=== PATIENT | male | born 1980 | race Caucasian/White ===

== ENCOUNTER → 2024-11-03 15:02 | Outpatient (REF) | payer OTHER, SELFPAY | LOC: RCS 15:02 | PROVIDERS: ATTENDING PHYSICIAN Internal Medicine Cardiovascular Disease; FAMILY PHYSICIAN Physician Assistant | DX: R00.2 Palpitations (principal) | CPT/HCPCS: 93306 ==

== ENCOUNTER 2024-11-17 10:32 | Emergency (ER) | payer OTHER, SELFPAY ==
[2024-11-17] VITALS (8 sets, daily range): BP systolic 118–176; BP diastolic 76–94; BMI 27.9
[2024-11-17 10:51] LABS: % Basophils 0.7 % (0-2); % Eosinophils 1.3 % (0-6); % Immature Granulocytes 0.2 % (0-0.5); % Lymphocytes 27.2 % (20.5-51.1); % Monocytes 4.7 % (1.7-9.3); % Neutrophils 65.9 % (42.2-75.2); Absolute Eosinophils 0.1 10^3/uL (0-0.7); Absolute Lymphocytes 1.7 10^3/uL (1.2-3.4); Absolute Monocytes 0.3 10^3/uL (0.1-0.6); Hematocrit 45.8 % (39.0-52.0); Hemoglobin 15.5 g/dL (13.0-18.0); Mean Corp Hgb Conc. 33.8 g/dL (33.0-37.0); Mean Corpuscular Volume 85.6 fL (80.0-94.0); Mean Platelet Volume 9.1 fL (7.4-10.4); Nucleated Red Blood Cells % 0 % (-); Platelet Count 185 10^3/uL (130-400); Red Blood Cell Count 5.35 10^6/uL (4.70-6.10); Red Cell Dist. Width 11.9 % (11.5-14.5); White Blood Cell Count 6.1 10^3/uL (4.8-10.8)
[2024-11-17 11:09] LABS: ALT (SGPT) 25 U/L (0-50); AST (SGOT) 26 U/L (17-59); Albumin 5.3 g/dl (3.5-5.0); Alkaline Phosphatase 72 U/L (38-126); Blood Urea Nitrogen 19 mg/dl (9-20); Calcium 9.9 mg/dl (8.4-10.2); Carbon Dioxide 23 mmol/L (22-30); Chloride 100 mmol/L (98-107); Glucose 151 mg/dl (70-99); Potassium 3.8 mmol/L (3.5-5.1); Sodium 136 mmol/L (135-145); Total Bilirubin 1.3 mg/dl (0.2-1.3); Total Protein 7.8 g/dl (6.3-8.2); eGFR > 60.00
--- NOTE | 2024-11-17 14:10 | ED.GENMED ---
History of Present Illness
General
Chief Complaint: Dizziness
Source: patient and spouse
Exam Limitations: none
Time Seen by Provider: 11/17/24 13:55
Nursing documentation reviewed up to this point in time: agreed with
History of Present Illness
History of Present Illness:
44-year-old male with no reported chronic medical issues presents to the ER for evaluation of lightheadedness and palpitations/tachycardia. Patient reports that he was working from home today sitting in his desk when he had rather sudden onset of
lightheadedness 'like I might pass out.' He says he had associated tachycardia and that his Fitbit told him his heart rate was in the 140s. He says that he had associated mild shortness of breath. He did not have any chest pain he says. His
says he appeared pale but he denies any diaphoresis. Denies any nausea, vomiting, abdominal discomfort. He says that because he felt he was going to pass out he decided to come to the emergency room. He says shortly after arrival here his
symptoms resolved and he is now feeling 'basically normal.' He says total duration of symptoms this morning was about 2 hours. He says he has not had any recent illness�no recent fever, URI symptoms, GI symptoms. He says he has had mild
palpitations in the past and in fact has seen cardiology (Dr. Moran) as an outpatient for this because they occur usually once a month and last for a few hours. He says he has had 2-week Holter monitor, echocardiogram which he was told were
reassuring. He does report occasional alcohol use, denies smoking, denies drug use. He says he drinks about 3 cups of coffee a day no other caffeine intake.
Past History
Past History
ED Past Medical History: None
ED Past Surgical History: None
Social History
Tobacco: Non-smoker
Alcohol: None
Drug: None
Living: with family
Review of Systems
Review of Systems
All Other Systems: ROS reviewed and negative except as documented in HPI and ROS
Constitutional: Denies fever or chills
EENT: Denies sore throat or runny nose
Respiratory: Reports trouble breathing; Denies cough
Cardiac: Reports palpitations; Denies chest pain, diaphoresis or syncope
ABD/GI: Denies abdominal pain, nausea, vomiting or diarrhea
: Denies flank pain
Musculoskeletal: Denies edema, neck pain or back pain
Neurological: Reports dizzy; Denies headache
Phy Exam
Physical Exam
Physical Exam:
General: Awake, alert, oriented x3; no acute distress
Head: Normocephalic, atraumatic
Eyes: Conjunctiva normal, pupils equal round and reactive to light bilaterally
Throat: Airway intact, handling secretions
Neck: Trachea midline, supple without meningismus
Lungs: Clear to auscultation bilaterally, no wheezing, rales, rhonchi
Heart: Regular rate and rhythm, no murmurs, gallops, or rubs appreciated
Abd: Soft, non distended, nontender
Neuro: No gross deficit
Extremities: No edema in extremities, equal pulses in all extremities
Scores
Heart Failure Risk
Heart Failure Risk Score: Not Applicable
Heart Score for Chest Pain Patients
STEMI patient?: Not applicable
Withdrawal Assessment of Alcohol
Withdrawal Assessment Completed?: Not applicable
Course
Orders/Labs/Results
Orders:
Orders
11/17/24 10:35
Electrocardiogram (*1) Urgent
Reason for Study: Palpitations
EKG- Treatment ONCE
11/17/24 10:45
Complete Blood Count/With Diff Urgent
Comprehensive Metabolic Panel Urgent
Glycohemoglobin (HgbA1c) Urgent
TSH Reflex To Free T4 Urgent
Comment: ADD ON
11/17/24 13:57
Electrocardiogram (*1) Urgent
Reason for Study: Palpitations
EKG- Treatment ONCE
11/17/24 14:01
Troponin I Urgent
11/17/24 14:20
D-Dimer Urgent
11/17/24 15:13
CARDIOLOGY CONSULT Urgent
Consulting Provider: Rakesh Jorge
Was physician already notified: Yes
11/17/24 16:17
Add On- LAB Routine
Tests Added?: TSH with reflex to free T4
11/17/24 16:55
Add On- LAB Routine
Tests Added?: hgbA1c
11/17/24 17:33
Troponin I Urgent
Abnormal Lab Results
11/17/24
10:45
Glucose 151 H mg/dl
(70-99)
Albumin 5.3 H g/dl
(3.5-5.0)
11/17/24 10:45
11/17/24 10:45
Vital Signs
Initial and Last Documented VS:
Initial Vital Signs
Temp Pulse Resp BP Pulse Ox
36.9 C 92 16 176/94 99
11/17/24 10:32 11/17/24 10:32 11/17/24 10:32 11/17/24 10:32 11/17/24 10:32
Last Documented Vital Signs
Temp Pulse Resp BP Pulse Ox
36.9 C 67 16 122/83 99
11/17/24 10:32 11/17/24 15:00 11/17/24 12:50 11/17/24 15:00 11/17/24 14:45
MDM/Problems Addressed
Differential Diagnosis Includes:
Tachycardia/palpitations: SVT, atrial fibrillation/flutter, sinus tachycardia
Shortness of breath, lightheadedness: Dysrhythmia as above, anemia, panic/anxiety, angina considered less likely with no exertional component; PE considered very unlikely with complete resolution of symptoms and normal vitals here without risk
factors
MDM/Problems Addressed:
44-year-old male with no chronic medical issues presents for evaluation after episode of lightheadedness associated with some mild shortness of breath and palpitations that lasted for about 2 hours and has completely resolved. He was hypertensive
in triage vital signs normalized by my assessment. Physical exam as above. EKG reviewed from triage shows sinus tachycardia rate [address] depression T wave abnormalities�no prior available for comparison. He had labs sent in triage
including a CBC and a CMP which showed no clinically significant abnormalities. With abnormal EKG will send troponin although he denies any chest pain associate with his symptoms. Will check D-dimer. Monitor on telemetry. Will contact cardiology
to try to obtain comparison EKG.
Cardiology was able to send a comparison EKG�see update below. Abnormalities appear to be new today. Will check repeat EKG today to evaluate for serial changes. Continue to monitor pending above.
D-dimer negative, troponin undetectable. Repeat EKG here shows normalization's of previously seen ST/T wave abnormalities. Given that patient was symptomatic during initial EKG and had change compared to prior and repeat, I did discuss the case
with cardiology to evaluate.
Repeat troponin negative. Case discussed with cardiology, stable for discharge they will follow-up with him as an outpatient. Patient comfortable with this plan he remains asymptomatic and has been asymptomatic with stable telemetry for 6+ hours
in the ER. Spoke about return precautions all questions answered.
Acute Exacerbation and/or Progression of Chronic Illness:
Acutely hypertensive resolved without intervention continue to monitor but no emergent antihypertensives indicated at present
Acute Exacerbation and/or Progression of Chronic Illness: HTN
*Pulse Oximetry
Patient hypoxic: no
*EKG
Interpreted by ED Provider?: Yes
Comparison EKG: changes noted
Heart Rate: 105
Rate: tachycardiac
Rhythm: sinus and sinus tachycardia
[place]: normal axis
Interval: normal interval
QRS Pattern: normal QRS
Ischemia: other (Inferior ST and T wave abnormalities)
*Critical Care Note
Total Time (30-74mins, 75-104mins- exclusive of procedures): Not Applicable
Data Reviewed
Source: patient, records and spouse
Patient Management
Discussion with other providers: Tin Tie Machine Operator Automatic (Discussed with cardiology)
Update Note
Update Note:
OUTPATIENT EKG FROM LAST MONTH (10/21/24)
ED Attending Note
-
Portions of this chart may have been created with voice recognition software.� Occasional wrong word or��sound alike� substitutions may have occurred due to the inherent limitations of voice recognition software.
Discharge Plan
Departure
Patient Disposition: Home (Routine Discharge)
Date of Disposition: 11/17/24
Time of Disposition: 18:07
Patient with high blood pressure during this ER visit?: Yes
Discharge Problem:
Lightheadedness, Palpitations
Instructions: Dizziness, Nonvertigo, (DC), Palpitations ED
Prescriptions:
No Action
No Current Medications
0
Referrals:
Nisha Arthur PA-C [Family Provider] -
Darwin Frazier MD [Active] - Call in 1-3 days for appt
Activity Restrictions/Additional Instructions:
Thank you for visiting the Emergency Department at [facility].
1. Please schedule a follow up appointment as directed. Call first thing tomorrow morning to make an appointment.
2. If indicated, please take your medications as instructed and indicated on discharge paperwork.
3. If any of your symptoms do not improve, or persist, or become more severe within 6-12 hours, please return to the emergency department for further care.
4. Please return to the emergency department if you develop a headache, neck pain/stiffness, fever greater than 100.4F, chest pain, shortness of breath, persistent nausea, vomiting, slurred speech, difficulty walking, numbness/tingling, weakness,
signs of infection or any other symptoms that are worrisome to you.
Please call [phone] if you have any questions.
Interventions
Interventions:
*Risk Screen - Suicide Last Done: 11/17/24 10:32
*General Assessment Last Done: 11/17/24 10:32
*Neglect/Abuse Screening Last Done: 11/17/24 14:11
ED- Fall Risk Assessment Last Done: 11/17/24 14:11
*ED COVID-19 Vaccine History Last Done: 11/17/24 10:32
ED- Neurological Assessment Last Done: 11/17/24 14:11
ED- Cardiac Assessment Last Done: 11/17/24 14:11
ED Swallowing Screen Last Done: 11/17/24 14:11
Discharge Date and Time
Print Language: YI
[2024-11-17 14:38] LABS: Troponin I < 0.012 ng/ml
[2024-11-17 15:07] LABS: D-Dimer < 0.27 ug/mlFEU (0.00-0.50)
--- NOTE | 2024-11-17 16:17 | CON.CAR ---
Addendum entered and electronically signed by Rakesh Jorge DO 11/17/24 18:16:
I saw and examined the patient.
The Emotional Disabilities Teacher's note was reviewed and I agree with the note.
Comment:
GENERAL: no acute distress
EYE: sclera anicteric
NECK: Supple, no JVD, no carotid bruit appreciated
ENT: normal nose, moist mucosal membranes
CARDIAC: Regular rate and rhythm, +S1/S2, no murmur, rubs, or gallops
CHEST/PULMONARY: Normal effort, clear breath sounds
ABDOMEN: Soft, without focal tenderness or distention
NEUROLOGICAL: Alert and oriented x3
SKIN: Warm and dry, no rash
PSYCH: Normal and appropriate interaction.
Telemetry demonstrates sinus rhythm, PVC, PAC; no sustained arrhythmias, pauses
A/P as below
Primary auto former machine operator: Dr. Frazier
Assessment:
Presentation with tachycardia, presyncope
- no syncope, CP, weakness
- No FHX SCD or CAD
Negative trop x2
Palpitations
ITP in 1999
ECHO 11/03/2024: EF 60 to 65%, no regional wall motion abnormalities, no significant valvular disease, during study sinus rhythm with occasional ectopy
Plan:
-Patient presents to ER for evaluation of symptoms including lightheadedness, out of breath, fast heartbeat, presyncope, now resolved
-In sinus rhythm on review of telemetry in ER
-Troponin negative x 2
-D-dimer negative
-EKG with nonspecific inferior T wave abnormality, stable when compared to prior
-echo with results as above, discussed with patient 11/17
-also reviewed results of OP 14 day monitor, SR without evidence of arrhythmia
-TSH normal
-nonfasting glucose 151. will also check hgbA1C (PENDING)
-Would advise buying a import[employer]io monitor if able so can check heart rhythm at home if/when symptoms recur
-Adequate hydration encouraged; reduction in caffeine, etoh
-OP cardiac follow up arranged for 12/12/24
Original Note:
Consultation
Consultation Request
Date/Time Consultation Performed: 11/17/24
Requesting Provider: Dr. Mejia
Performing Provider: Jia Maddox PA-C for Dr. Jorge
Reason for Consultation: tachycardia, presyncope
Medical History
-
Chief Complaint: tachycardia, presyncope
History of Present Illness:
Patient is a 44-year-old male with history of ITP in 1999 who was recently seen in our office as a new patient due to palpitations. He had started wearing a Fitbit which alarmed atrial fibrillation with elevated heart rate. He underwent 14-day
Bardy monitor which was unrevealing with normal sinus rhythm throughout and no evidence of arrhythmia, however did not have symptoms during monitoring. He underwent echocardiogram which showed preserved EF without significant valvular disease.
Today while sitting at his desk doing work that he notes was not particularly stressful felt fast heartbeat, lightheadedness, out of breath, and presyncopal. He also reported some numb and tingly feelings in his arms. He denied chest pain. He did
feel a 'dropping sensation in his chest'. His Fitbit did not alarm as arrhythmia, however did note rapid heart rate. Due to symptoms he came to emergency room for evaluation. He is unsure if his symptoms persisted once in ER, however took him
some time to feel back to normal. Cardiology consulted for evaluation. Reports since September has cut back on caffeine intake. Denies significant alcohol use. Denies recent supplements, medication changes, decongestants, illnesses, illicit drug
use, stimulants, energy drinks.
PMH:
ITP in 1999
Past Medical History
Past Medical History: Other (in HPI)
Social History
Tobacco: Non-Smoker
Alcohol: None
Drug: None
Personal:
Living: With Family
Employment: Employed ([employer])
Family History
Family History: Reviewed & Not Pertinent
Allergies / Home Medications
Allergy/AdvReac Type Severity Reaction Status Date / Time
No Known Allergies Allergy Unverified 06/05/12 20:20
�Medication �Instructions �Recorded �Confirmed �Type
No Meds [No Current Medications] 11/30/19 11/17/24 History
Review of Systems
-
History Source: Patient
All other systems: Negative unless noted
Physical Exam
Vital Signs
Temp Pulse Resp BP Pulse Ox
98.5 F 67 16 122/83 99
11/17/24 10:32 11/17/24 15:00 11/17/24 12:50 11/17/24 15:00 11/17/24 14:45
Lab Results
11/17/24 10:45
11/17/24 10:45
Troponin I < 0.012 ng/ml 11/17/24 14:01
Physical Exam
General: No Apparent Distress and Comfortable
HEENT: Normocephalic, Anicteric and Moist Mucous Membranes
Respiratory: Clear and Non Labored Respirations
Cardiac: S1/S2 and Regular Rhythm
GI: Soft, Non Tender, Non Distended and Normal Bowel Sounds
Musculoskeletal: No Clubbing, No Cyanosis and No Edema
Skin: Warm and Dry
Neuro: AO x 3
Impression / Plan
-
Primary auto former machine operator: Dr. Frazier
Assessment:
Presentation with tachycardia, presyncope
Negative trop x1
Palpitations
ITP in 1999
ECHO 11/03/2024: EF 60 to 65%, no regional wall motion abnormalities, no significant valvular disease, during study sinus rhythm with occasional ectopy
Plan:
-Patient presents to ER for evaluation of symptoms including lightheadedness, out of breath, fast heartbeat, presyncope, now resolved
-In sinus rhythm on review of telemetry in ER
-Troponin negative x 1
-D-dimer negative
-EKG with nonspecific inferior T wave abnormality, stable when compared to prior
-echo with results as above, discussed with patient 11/17
-also reviewed results of OP 14 day monitor, SR without evidence of arrhythmia
-Check TSH
-nonfasting glucose 151. will also check hgbA1C
-Would advise buying a import[employer]io monitor if able so can check heart rhythm at home if/when symptoms recur
-Adequate hydration encouraged
-OP cardiac follow up arranged for 12/12/24
Data Reviewed
-
EKG: Tracing Personally Visualized and interpreted
Medical Tests (Nuc Med, Echo etc): Report Reviewed by me
Labs: Labs Reviewed by me
Old Records: Reviewed
--- NOTE | 2024-11-17 16:59 | EDRN ---
cardiology currently at the pts bedside
[2024-11-17 17:52] LABS: TSH Reflex To Free T4 1.97 uIU/ml (0.47-4.68)
[2024-11-17 18:03] LABS: Troponin I < 0.012 ng/ml
[2024-11-18 08:59] LABS: Glycohemoglobin (HgbA1c) 5.4 % (4.0-5.6)
== END 2024-11-17 18:20 | disposition home or self-care (01) ==
LOC: EMR 10:32
PROVIDERS: Emergency Medicine; CONSULT PHYSICIAN Internal Medicine Cardiovascular Disease; EMERGENCY PHYSICIAN Emergency Medicine; FAMILY PHYSICIAN Physician Assistant
DX: R42 Dizziness and giddiness (principal); R00.2 Palpitations; R03.0 Elevated blood-pressure reading, without diagnosis of hypertension
CPT/HCPCS: 99284; 80053; 83036; 84443; 84484; 85025; 85379; 93005

== ENCOUNTER → 2025-04-17 10:07 | Outpatient (REF) | payer OTHER, SELFPAY | LOC: DHSLP 10:07 | PROVIDERS: ATTENDING PHYSICIAN Internal Medicine Cardiovascular Disease; FAMILY PHYSICIAN Physician Assistant | DX: G47.30 Sleep apnea, unspecified (principal); R06.83 Snoring | CPT/HCPCS: 95800 ==

== ENCOUNTER 2025-06-06 06:01 | Day surgery (SDC) | payer OTHER, SELFPAY ==
--- NOTE | 2025-05-21 08:16 | HPS.HSE ---
Family Physician
-
Family Physician: NOT KNOW UNKNOWN - PT DOES
Chief Complaint
-
Paroxysmal atrial fibrillation.
History of Present Illness
The patient is a 44 year old male presenting today for paroxysmal atrial fibrillation. The patient reports a history of shortness of breath, decreased exercise capacity, fatigue, palpitations, and lightheadedness associated with this
diagnosis. He is on current pharmacological therapy with Metoprolol Tartrate up to twice a day as needed. He reports compliance with Eliquis for oral anticoagulation. Given his significant symptoms associated with this arrhythmia, he would like to
proceed with pulmonary vein isolation for more definitive arrhythmia management. He denies any current complaints today such as chest pain, shortness of breath at rest, nausea, vomiting, diarrhea, dizziness, cough, sore throat, or fever.
Medical History
Past Medical History
Past Medical History: Reports Other
Additional Past Medical History:
1. Paroxysmal atrial fibrillation, pharmacological therapy with Metoprolol Tartrate as needed and oral anticoagulation with Eliquis.
2. PACs and PVCs.
3. Vertigo.
4. Immune thrombocytopenic purpura, 2000, resolved.
Past Surgical History: Reports Other
Additional Past Surgical History:
1. Left inguinal hernia repair.
2. [place] teeth extraction.
Social History
Tobacco: Non-smoker
Alcohol: Other (He, on average, drinks alcohol once a week. )
Personal:
Living: With Family (in a 2 story home. )
Family History
Family History: Not pertinent
Allergies / Home Medications
Allergy/Medication List:
Home medications:
1. Eliquis 5 mg p.o. twice a day.
2. Metoprolol Tartrate 25 mg p.o. twice a day as needed.
Allergies: No known allergies.
Review of Systems
-
A 12 point ROS was completed and negative except as noted: Yes
Physical Exam
Vital Signs
Blood pressure 129/85. Heart rate 58. Respirations 18. Pulse ox 98% on room air.
Height 6 feet, 1 inch. Weight 88 kg. BMI 25.6.
Physical Exam
General: Well Developed, Well Nourished and No Apparent Distress
HEENT: NormoCephalic, Moist mucous membranes, Atraumatic and PERRLA
Respiratory: Clear
Cardiac: Bradycardia
GI: Soft, Non Tender and Non Distended
Musculoskeletal: No Edema and Normal Gait & Station
Skin: Warm and Dry
Neuro: AO x 3 and Nonfocal/grossly intact
Laboratory Results
-
DIAGNOSTIC STUDIES as of 05/21/2025: White blood cell count 5.6. Hemoglobin 14.3. Platelet count 193,000. PT 13.8. INR 1.03. Sodium 140. Potassium 4.4. BUN 18. Creatinine 1.0. Glucose 108. Calcium 9.7. Magnesium 2.2. AST 25. ALT 23. Albumin 4.8.
Type and screen A positive.
EKG 05/21/2025: Sinus bradycardia.
Chest CT 05/21/2025: Short segment common vestibule for the left superior and inferior pulmonary veins, fairly commonly seen and considered normal variant. No evidence for left atrial thrombus.
Echocardiogram 11/03/2024: Normal left ventricular size, wall thickness, and systolic function. No regional wall motion abnormalities are seen. LV ejection fraction is 60-65% by volumetric assessment. Normal diastolic function.
Impression/Plan
-
IMPRESSION/PLAN:
1. Paroxysmal atrial fibrillation: The patient is in need of pulmonary vein isolation with Dr. Rakesh Jorge on 06/06/2025. The benefits and risks of the procedure have been explained to the patient. The patient understands these risks and wishes to
proceed. He will not be required to undergo a pre-procedural transesophageal echocardiogram as he has been compliant with his home oral anticoagulation. He is aware to continue his Eliquis uninterrupted prior to his procedure. He will take no
medications the morning of his ablation.
[2025-05-21 08:43] LABS: Hematocrit 43.0 % (39.0-52.0); Hemoglobin 14.3 g/dL (13.0-18.0); Mean Corp Hgb Conc. 33.3 g/dL (33.0-37.0); Mean Corpuscular Volume 86.2 fL (80.0-94.0); Nucleated Red Blood Cells % 0 % (-); Platelet Count 193 10^3/uL (130-400); Red Cell Dist. Width 12.1 % (11.5-14.5)
[2025-05-21 08:49] LABS: ALT (SGPT) 23 U/L (0-50); AST (SGOT) 25 U/L (17-59); Albumin 4.8 g/dl (3.5-5.0); Alkaline Phosphatase 55 U/L (38-126); Blood Urea Nitrogen 18 mg/dl (9-20); Calcium 9.7 mg/dl (8.4-10.2); Carbon Dioxide 31 mmol/L (22-30); Chloride 104 mmol/L (98-107); Glucose 108 mg/dl (70-99); Magnesium 2.2 mg/dl (1.6-2.3); Potassium 4.4 mmol/L (3.5-5.1); Sodium 140 mmol/L (135-145); Total Protein 7.4 g/dl (6.3-8.2); eGFR > 60.00
[2025-05-21 08:57] LABS: INR 1.03; PT 13.8 Sec (11.4-14.6)
[2025-05-21 12:27] VITALS: BMI 25.6
[2025-06-06] VITALS (11 sets, daily range): BP systolic 95–138; BP diastolic 52–81; BMI 25.1
[2025-06-06] MEDS: TYLENOL 1000 MG PO (07:14)
--- NOTE | 2025-06-06 07:34 | ITS.CL.ABL ---
Flavoring Maker - Ablation
Ablation
Procedure Report:
Primary Pumper Head: Dr Darwin Frazier
Procedure Date: 06/06/2025
Patient History:
Patient is a pleasant 44-year-old male with a past medical history significant for palpitations, PVCs, ITP (resolved 1999), and symptomatic paroxysmal atrial fibrillation.
See H&P for complete details.
Indication:
Symptomatic paroxysmal atrial fibrillation
Arrhythmia Specific History:
Prior Medical Therapies for Rate and Rhythm Control:
X Beta-carol ann
[ ] Calcium channel-carol ann
[ ] Amiodarone
[ ] Dronederone
[ ] Sotalol
[ ] Flecainide
[ ] Dofetilide
[ ] Options limited by bradycardia
[ ] Options limited by comorbid renal disease
Prior Procedural Therapies for AF/AFL:
[ ] Cardioversion
[ ] Pulmonary Vein Isolation
[ ] Posterior Wall Isolation
[ ] Additional lines (Specify)
[ ] Surgical De Oliveira-MAZE or PVI (Specify)
Procedure Performed:
X AF ablation procedure (16826) -- includes LA/CS pacing, trans-septal, 3D mapping, + ICE
[ ] +IV drug (47262)
[ ] +Other Arrhythmia (63763)
[ ] +Other AF Line/ablation (09527)
Risks and expected recovery has been explained in detail. Alternative options have been explored, and in a shared-decision making fashion we have decided that this was the most appropriate procedure.
Method
NPO status confirmed. Grounding pad applied. Defibrillator pads applied. Continuous surface ECG, pulse oximetry, and blood pressure were monitored. Procedure was performed under general anesthesia, with anesthesia services.
Both groins were clipped, prepped with Chloraprep, and draped in sterile fashion. Time out was called. Local anesthesia administered with bupivacaine. The right femoral vein was accessed for catheter placement, using ultrasound guidance (images
saved to record), micro-puncture needle/wire, and modified seldinger technique. 3 sheaths were placed. The following catheters were used:
[ ] Tacticath SE (D/F Curve) ablation catheter
X Viewflex 9Fr ICE catheter
X Inquiry decapolar 6Fr diagnostic catheter
[ ] CRD Hex 6Fr
X FlexCath Contour 10 Fr with PulseSelect PFA Catheter
X Advisor HD Grid Mapping Catheter, SE
[ ] Acuson AcuNav 8 Fr ICE catheter
[ ]Other: [ ]
Intracardiac ultrasound (ICE) was carefully advanced into the right atrium to guide sheath placement over a J-wire, catheter placement, guide trans-septal puncture, identify potential complications, identify anatomic structures and ensure proper
contact between ablation catheter and tissue.
Heparin was given prior to trans-septal puncture. Heparin was given to achieve and maintain a target ACT of 300-400 seconds throughout the procedure.
Trans-septal access was performed under ICE guidance. The trans-septal puncture was performed with a SafeSept wire through a Brockenbrough needle assembly through the steerable sheath. The wire was visualized as it entered the LSPV and system
advanced under ICE guidance and fluoroscopy into the LA. The Brockenbrough needle assembly, SafeSept wire and sheath dilator were removed under negative pressure. LA pressure was measured and recorded.
ICE and 3D mapping was performed to identify relevant cardiac structures. A careful 3D map was created to assess for regions of low-voltage and abnormal electrogram signals using HD grid mapping catheter and PulseSelect catheter. Additional mapping
was performed as outlined below.
Prior to ablation, glycopyrrolate was provided. PulseSelect catheter was advanced over J-wire to the ostium of each vein. Pulmonary vein isolation was performed with ostial and antral lesions in a circumferential manner. Contact was visualized via
EAM, ICE, fluoroscopy, and EGM signals.
Following completion of ablation lesions, a post-ablation voltage/activation map was performed in sinus rhythm. Entrance and exit block were confirmed for each vein.
Catheter and sheath were removed from the left atrium and post-ablation intracardiac echo evaluation was consistent with pre-ablation with no changes and no pericardial effusion and there is no left atrial thrombus or left ventricle thrombus seen.
Electrophysiology study was performed. Hemostasis was obtained with figure of 8 stitch for each groin and with manual pressure. Protamine was used for reversal.
Estimated Blood Loss
5 mL
Complications
None
Fluoroscopy: 1.3 minutes; 3.39 mGy; DAP 0.442
LA Pressure: Pre 12 mmHg, post 16 mmHg
Baseline Intervals:
Rhythm: SR
AZ: 141 ms
QRS: 99 ms
QT: 402 ms
QTc: 410 ms
A-A: 960 ms
R-R: 960 ms
Post-Procedure Intervals:
AZ: 140 ms
QRS: 99 ms
QT: 367 ms
QTc: 421 ms
A-A: 760 ms
R-R: 760 ms
AVWB: 340 ms
AVNERP: 660/210 ms
Recommendations
- Bedrest with straight-leg precautions as ordered
- Anticipate same day discharge if patient meeting clinical metrics
- Resume home medications as indicated
- Ok to resume anticoagulation tonight if patient and groin sites stable
- Plan for follow-up in office as scheduled
Rakesh Jorge DO, FACC, RS
Clinical Cardiac Coding Specialist
cc: Dr Darwin Frazier; Dr Nisha Arthur
[2025-06-06 08:36] LABS: ACT-LR - POC 339 Seconds (116-155)
[2025-06-06 08:51] LABS: ACT-LR - POC 316 Seconds (116-155)
[2025-06-06 09:17] LABS: ACT-LR - POC 385 Seconds (116-155)
[2025-06-06 09:33] LABS: ACT-LR - POC 176 Seconds (116-155)
[2025-06-06] MEDS: ANESTHETIC LOZENGE 1 LOZENGE PO (10:48)
--- NOTE | 2025-06-06 13:45 | W.PN.UPDATE ---
Update Note
Progress Note Update
Pt seen post PFA. Right groin site without ht/bleeding, non tender. Post EKG NSR 70, no acute changes. Resume eliquis tonight at usual time, continue other meds as before. Followup at [facility] as scheduled. Home later today if groin site/tele remain
stable.
== END 2025-06-06 14:30 | disposition home or self-care (01) ==
LOC: CATH 06:01
PROVIDERS: ATTENDING PHYSICIAN Internal Medicine Cardiovascular Disease; FAMILY PHYSICIAN Physician Assistant; REFERRING PHYSICIAN Internal Medicine Cardiovascular Disease
DX: I48.0 Paroxysmal atrial fibrillation (principal); R42 Dizziness and giddiness; Z79.01 Long term (current) use of anticoagulants
CPT/HCPCS: C1733; C1766; C1732; C1894; C1730; C1769; 36415; 75572; 80053; 83735; 85025; 85347; 85610; 86850; 86900; 86901; 93005; 93656; Q9967

== ENCOUNTER 2025-06-07 09:32 | Emergency (ER) | payer OTHER, SELFPAY ==
[2025-06-07] VITALS (10 sets, daily range): BP systolic 106–142; BP diastolic 68–83; BMI 27.2
--- NOTE | 2025-06-07 10:14 | ED.GENMED ---
History of Present Illness
General
Chief Complaint: Visual Problem
Source: patient
Exam Limitations: none
Time Seen by Provider: 06/07/25 09:59
History of Present Illness
History of Present Illness:
44-year-old male on Eliquis for A-fib had cardiac ablation yesterday presents with visual disturbance of the left eye starting this morning around 830. He states he describes a sensation that he was looking at a bright light too long. He noticed
this mainly in the periphery of his left eye. There was no pain associated with this. No dizziness. The symptoms lasted around 20 minutes and then resolved on its own. He has no complaints at this time. He spoke with the cardiology office and
he was told to come here for further evaluation. He did not take his morning dose yesterday prior to the ablation as instructed. He resumed his Eliquis last evening. No chest pain unilateral numbness or weakness or facial droop. No dysarthria or
aphasia
Past History
Past History
ED Past Medical History: None
ED Past Surgical History: None
Social History
Tobacco: Non-smoker
Alcohol: None
Drug: None
Living: with family
Phy Exam
Physical Exam
Physical Exam:
General: Well-appearing male no acute respiratory distress
HEENT: NC/AT PERRL, EOMI
Heart: RRR, no murmurs
Lungs: CTA bilaterally
Neurologic exam: Alert and oriented x 3 extract motion intact visual willett intact no drift on exam conversing appropriately. No dysarthria or aphasia.
Ext: no cyanosis
Course
Orders/Labs/Results
Orders:
Orders
06/07/25 10:17
CT Head & Neck Angio W/wo IV Urgent
Comment:
Reason For Exam: blurry vision left eye, recent ablation
06/07/25 10:29
Complete Blood Count/With Diff Urgent
Comprehensive Metabolic Panel Urgent
06/07/25 14:46
Troponin I Urgent
Abnormal Lab Results
06/07/25 06/07/25
10:29 14:46
RBC 4.52 L 10^6/uL
(4.70-6.10)
Hgb 12.7 L g/dL
(13.0-18.0)
Hct 37.6 L %
(39.0-52.0)
Absolute Neuts (auto) 7.9 H 10^3/uL
(1.4-6.5)
Absolute Monos (auto) 0.8 H 10^3/uL
(0.1-0.6)
Lymphocytes % 17.2 L %
(20.5-51.1)
Glucose 108 H mg/dl
(70-99)
AST 67 H U/L
(17-59)
Troponin I 6.000 H* ng/ml
06/07/25 10:29
06/07/25 10:29
Vital Signs
Initial and Last Documented VS:
Initial Vital Signs
Temp Pulse Resp BP Pulse Ox
98.5 F 74 16 142/83 98
06/07/25 09:34 06/07/25 09:34 06/07/25 09:34 06/07/25 09:34 06/07/25 09:34
Last Documented Vital Signs
Temp Pulse Resp BP Pulse Ox
98.5 F 80 17 109/76 97
06/07/25 09:34 06/07/25 14:30 06/07/25 14:30 06/07/25 14:00 06/07/25 14:30
MDM/Problems Addressed
Differential Diagnosis Includes:
Episode of blurry vision/bright light sensation out of the left eye that has since resolved. Complicating factor is history of A-fib on Eliquis with cardiac ablation yesterday. Consider TIA. Retinal exam per my assessment without obvious finding
Will check labs. CT of the head CT angio the head and neck ordered.
*Pulse Oximetry
SaO2: 99
Oxygen Mode of Delivery: Room air
Patient hypoxic: no
*Critical Care Note
Total Time (30-74mins, 75-104mins- exclusive of procedures): Not Applicable
Update Note
Update Note:
Patient reevaluated multiple times still without any visual disturbance. CT angio of the head and neck were performed which were negative. Discussed findings with emergency room attending, neurology as well as cardiology. Neurology feels as
though that the patient is on a anticoagulant with normal exam and no symptoms and negative CTA no indication for admission. Inquired with cardiology to see if they felt any other testing was necessary and from the cardiology standpoint they felt
that this was not. A troponin was drawn in error as I ordered it under the wrong patient. This was expectedly high as he just had an ablation yesterday. Patient is not having chest pain he is in a sinus rhythm. Long discussion with patient
regarding treatment offered risks and benefits of admission versus going home. He decided to go home with follow-up. He will continue the Eliquis.
ED Attending Note
-
Portions of this chart may have been created with voice recognition software.� Occasional wrong word or��sound alike� substitutions may have occurred due to the inherent limitations of voice recognition software.
Discharge Plan
Departure
Patient Disposition: Home (Routine Discharge)
Date of Disposition: 06/07/25
Time of Disposition: 15:40
Patient with high blood pressure during this ER visit?: No
Discharge Problem:
Visual disturbance
Prescriptions:
No Action
metoprolol tartrate 25 mg Tablet
25 mg PO BIDPRN PRN (Reason: palpatations)
Eliquis 5 mg Tablet
5 mg PO BID
acetaminophen 500 mg Tablet
500 mg PO Q6HPRN PRN (Reason: nasal congestion)
Referrals:
Nisha Arthur PA-C [Family Provider, Family Practice]
Activity Restrictions/Additional Instructions:
Continue Eliquis. Please return here for any worsening symptoms. Follow-up with cardiology and your doctor otherwise
Interventions
Interventions:
*Risk Screen - Suicide Last Done: 06/07/25 09:34
*Neglect/Abuse Screening Last Done: 06/07/25 09:34
*ED- Fall Risk Assessment Last Done: 06/07/25 09:40
*ED COVID-19 Vaccine History Last Done: 06/07/25 09:40
ED- Neurological Assessment Last Done: 06/07/25 09:40
ED-EENT Assessment Last Done: 06/07/25 09:40
Discharge Date and Time
Print Language: BENINESE
[2025-06-07 10:42] LABS: Hematocrit 37.6 % (39.0-52.0); Hemoglobin 12.7 g/dL (13.0-18.0); Mean Corp Hgb Conc. 33.8 g/dL (33.0-37.0); Mean Corpuscular Volume 83.2 fL (80.0-94.0); Nucleated Red Blood Cells % 0 % (-); Platelet Count 185 10^3/uL (130-400); Red Cell Dist. Width 11.9 % (11.5-14.5)
[2025-06-07 10:57] LABS: ALT (SGPT) 21 U/L (0-50); AST (SGOT) 67 U/L (17-59); Albumin 4.1 g/dl (3.5-5.0); Alkaline Phosphatase 49 U/L (38-126); Blood Urea Nitrogen 17 mg/dl (9-20); Calcium 9.2 mg/dl (8.4-10.2); Carbon Dioxide 30 mmol/L (22-30); Chloride 105 mmol/L (98-107); Estimated Creatinine Clearance 101 ml/min; Glucose 108 mg/dl (70-99); Potassium 4.0 mmol/L (3.5-5.1); Sodium 137 mmol/L (135-145); Total Protein 6.6 g/dl (6.3-8.2); eGFR > 60.00
[2025-06-07 15:24] LABS: Troponin I 6.000 ng/ml
== END 2025-06-07 16:36 | disposition home or self-care (01) ==
LOC: EMR 09:32
PROVIDERS: Physician Assistant; EMERGENCY PHYSICIAN Emergency Medicine; FAMILY PHYSICIAN Physician Assistant
DX: H53.8 Other visual disturbances (principal); I48.91 Unspecified atrial fibrillation; Z79.01 Long term (current) use of anticoagulants
CPT/HCPCS: 99284; 70496; 70498; 80053; 84484; 85025; Q9967